=== PATIENT | male | born 1985 | race Caucasian/White ===

== ENCOUNTER 2019-06-26 13:30 | Emergency (ER) | payer OTHER ==
[~2019-06-26] VITALS: Ht 167.6 cm; Wt 59.0 kg
[~2019-06-26 13:30] MED LIST: LIDEX 0.05% CRE15 GM T; PREDNISONE20 M1 PO
[2019-06-26] MEDS ORDERED: IBU800 MG PO (14:05)
== END 2019-06-26 14:16 | disposition home or self-care (01) ==
LOC: ED 13:30
DX: S39.012A Strain of muscle, fascia and tendon of lower back, initial encounter (principal); Z79.899 Other long term (current) drug therapy; X50.0XXA Overexertion from strenuous movement or load, initial encounter; Y93.89 Activity, other specified; Y92.59 Other trade areas as the place of occurrence of the external cause; Y99.0 Civilian activity done for income or pay

== ENCOUNTER 2019-06-30 15:06 | Emergency (ER) | payer OTHER ==
[~2019-06-30] VITALS: Ht 167.6 cm; Wt 59.0 kg
[~2019-06-30 15:06] MED LIST changes: +IBU800 MG PO
[2019-06-30] MEDS ORDERED: CYCLOBENZAPRINE10 MG PO (16:00)
[2019-06-30] MEDS ORDERED: Motrin,Rufen800 MG PO (16:00)
== END 2019-06-30 16:20 | disposition home or self-care (01) ==
LOC: ED 15:06
DX: S39.012A Strain of muscle, fascia and tendon of lower back, initial encounter (principal); X58.XXXA Exposure to other specified factors, initial encounter; Y93.89 Activity, other specified; Y92.89 Other specified places as the place of occurrence of the external cause; Y99.0 Civilian activity done for income or pay

== ENCOUNTER 2022-02-21 11:10 | Emergency (ER) | payer OTHER ==
[~2022-02-21] VITALS: Ht 167.6 cm; Wt 59.0 kg
[~2022-02-21 11:10] MED LIST changes: +CYCLOBENZAPRINE10 MG PO; +Motrin,Rufen800 MG PO
[2022-02-21] MEDS ORDERED: PREDNISONE10 MG PO (11:57)
== END 2022-02-21 11:54 | disposition home or self-care (01) ==
LOC: ED 11:10
DX: L23.7 Allergic contact dermatitis due to plants, except food (principal)

== ENCOUNTER 2022-03-02 12:18 | Emergency (ER) | payer OTHER ==
[~2022-03-02 12:18] MED LIST changes: +PREDNISONE10 MG PO
== END 2022-03-02 14:12 | disposition left against medical advice (07) ==
LOC: ED 12:18
DX: R21 Rash and other nonspecific skin eruption (principal); Z53.21 Procedure and treatment not carried out due to patient leaving prior to being seen by health care provider

== ENCOUNTER 2022-03-06 09:05 | Emergency (ER) | payer OTHER ==
[~2022-03-06] VITALS: Wt 56.7 kg
[2022-03-06] MEDS ORDERED: PREDNISONE10 MG PO (09:43)
== END 2022-03-06 09:49 | disposition home or self-care (01) ==
LOC: ED 09:05
DX: L25.9 Unspecified contact dermatitis, unspecified cause (principal)